=== PATIENT | female | born 1940 | race Caucasian/White ===

== ENCOUNTER 2017-04-19 07:12 | Emergency (ER) | payer MEDICARE, OTHER ==
[~2017-04-19] VITALS: Ht 162.6 cm; Wt 84.1 kg
[~2017-04-19 07:12] MED LIST: ALAVERT10 M1 PO; BENADRYL25 M2 PO; BONIVA2.5 MG PO; DOXYCYCLINE 10100 MG PO; HYZAAR 50-12.1 UDTAB PO; MIACALCIN NASA3.7 ML NS; MULTI VITAMINS1 TAB PO; NORCO 325 MG-7.1 TAB PO; OYSTER SHELL C500 MG PO; PEPCID 20MG TAB20 MG PO; PREDNISONE20 MG PO; TRIAMTERENE AND1 TAB PO; VITAMIND3 5000; ZYRTEC 10MG10 MG PO
[2017-04-19 07:13] VITALS: TEMP 97
[2017-04-19 07:38] LABS: BASO % 0.3 % (0.0-2.0); EOS # 0.1 (0.0-0.7); EOS % 0.7 % (0-4.0); GRAN # 6.8 (1.4-6.5); GRAN % 73.7 % (42.2-75.2); HEMATOCRIT 46.5 % (37.0-47.0); HEMOGLOBIN 16.3 g/dl (12.5-16.0); LYMPH # 1.4 (1.2-3.4); LYMPH % 14.9 % (20.0-51.0); MEAN CELL VOLUME 89 fl (80.0-100.0); MEAN CORPUSCULAR HEMOGLOBIN 31 pg (27.0-31.0); MEAN CORPUSCULAR HGB CONC 35 g/dl (33.0-37.0); MEAN PLATELET VOLUME 9.1 fl (7.4-10.4); MONO # 0.9 (0.1-0.6); MONO % 10.1 % (1.7-9.3); PLATELET COUNT 294 K/mm3 (130-400); RED BLOOD COUNT 5.21 M/mm3 (4.10-5.30); REDCELL DISTRIBUTION WIDTH-CV 12.7 % (11.5-14.5); WHITE BLOOD COUNT 9.2 K/mm3 (4.8-10.8)
[2017-04-19 07:59] LABS: ADJUSTED CALCIUM 9.4 mg/dL (8.4-10.2); ALANINE AMINOTRANSFERASE 28 U/L (9-52); ALBUMIN 4.1 gm/dL (3.5-5.0); ALKALINE PHOSPHATASE 101 U/L (50-136); ANION GAP 13 mmol/L (7-16); BLOOD UREA NITROGEN 12 mg/dL (7-17); CALCIUM 9.5 mg/dL (8.4-10.2); CARBON DIOXIDE 24 mmol/L (22-30); CHLORIDE 101 mmol/L (98-107); CREATININE, serum 0.68 mg/dL (0.52-1.25); GLUCOSE 106 mg/dL (74-106); POTASSIUM 3.6 mmol/L (3.4-5.0); SODIUM 138 mmol/L (137-145); TOTAL PROTEIN 7.5 gm/dL (6.4-8.2)
[2017-04-19 08:00] LABS: C-REACTIVE PROTEIN < 0.5 mg/dL (0.0-0.9)
[2017-04-19] MEDS ORDERED: ASPIRIN 32325 MG/TAB PO (08:08)
[2017-04-19] MEDS ORDERED: AMOXICILLIN 50500 MG PO (08:08)
[2017-04-19 09:04] LABS: PH 7 (5-8); URINE APPEARANCE Hazy; URINE BACTERIA None Seen /hpf; URINE BILIRUBIN Negative (NEGATIVE); URINE BLOOD Negative (NEGATIVE); URINE COLOR Yellow; URINE GLUCOSE Negative (NEGATIVE); URINE KETONE Trace (NEGATIVE); URINE UROBILINOGEN Negative (NEGATIVE)
[2017-04-19] MEDS ORDERED: ZOFRAN ODT4 MG PO (14:01)
[2017-04-19 14:08] VITALS: BP 185/78; PULSE 87
== END 2017-04-19 15:05 ==
LOC: COL.ER 07:12
PROVIDERS: Nurse Practitioner
DX: R53.1 Weakness (principal); R11.0 Nausea; I10 Essential (primary) hypertension; Z98.890 Other specified postprocedural states; Z87.39 Personal history of other diseases of the musculoskeletal system and connective tissue; W18.39XA Other fall on same level, initial encounter
CPT/HCPCS: J2405; J2550; J2765; J3010; J7030

== ENCOUNTER 2017-04-23 10:01 | Emergency (ER) | payer MEDICARE, OTHER ==
[~2017-04-23] VITALS: Ht 172.7 cm; Wt 90.9 kg
[~2017-04-23 10:01] MED LIST changes: +AMOXICILLIN 50500 MG PO; +ASPIRIN 32325 MG/TAB PO; +ZOFRAN ODT4 MG PO
[2017-04-23] MEDS ORDERED: MIRALAX PA17 GM/Dose PO (10:24)
[2017-04-23] MEDS ORDERED: PAXIL 20MG20 MG PO (10:45)
[2017-04-23] MEDS ORDERED: MOBIC15 MG PO (10:47)
[2017-04-23 10:57] LABS: PH 6 (5-8); URINE APPEARANCE Hazy; URINE BACTERIA None Seen /hpf; URINE BILIRUBIN Negative (NEGATIVE); URINE BLOOD 1+ (NEGATIVE); URINE COLOR Yellow; URINE GLUCOSE Negative (NEGATIVE); URINE KETONE Negative (NEGATIVE); URINE UROBILINOGEN Negative (NEGATIVE); URINE WBC 0-2 /hpf
[2017-04-23 11:36] VITALS: BP 161/92; PULSE 89; TEMP 97.6
== END 2017-04-23 11:15 | disposition short-term general hospital (02) ==
LOC: COL.ER 10:01
PROVIDERS: Emergency Medicine
DX: S22.089A Unspecified fracture of T11-T12 vertebra, initial encounter for closed fracture (principal); R29.818 Other symptoms and signs involving the nervous system; R33.9 Retention of urine, unspecified; I10 Essential (primary) hypertension; K21.9 Gastro-esophageal reflux disease without esophagitis; M19.90 Unspecified osteoarthritis, unspecified site; M81.0 Age-related osteoporosis without current pathological fracture; Z79.82 Long term (current) use of aspirin; Z98.890 Other specified postprocedural states; W19.XXXA Unspecified fall, initial encounter
CPT/HCPCS: A4315; J2270; J2405; J7030

== ENCOUNTER → 2017-10-24 | Outpatient (CLI) | payer MEDICARE, OTHER ==
[~2017-10-24] MED LIST changes: +MIRALAX PA17 GM/Dose PO; +MOBIC15 MG PO; +PAXIL 20MG20 MG PO
== END ==
LOC: MC.RAD 10:51
DX: Z12.31 Encounter for screening mammogram for malignant neoplasm of breast (principal)

== ENCOUNTER → 2018-10-28 | Outpatient (CLI) | payer MEDICARE, OTHER | LOC: MC.RAD 08:17 | DX: Z12.31 Encounter for screening mammogram for malignant neoplasm of breast (principal) ==

== ENCOUNTER 2022-02-10 12:59 | Emergency (ER) | payer MEDICARE, OTHER ==
[~2022-02-10] VITALS: Ht 162.6 cm; Wt 90.9 kg
[2022-02-10 13:10] VITALS: TEMP 96.4
[2022-02-10] MEDS ORDERED: ZOFRAN ODT8 MG PO (14:43)
[2022-02-10] MEDS ORDERED: NORCO 325 MG-51 TAB PO ×2 (14:43→14:44)
[2022-02-10 15:03] VITALS: BP 123/112; PULSE 78
== END 2022-02-10 15:03 | disposition home or self-care (01) ==
LOC: COL.ER 12:59
DX: R05.9 Cough, unspecified (principal)
CPT/HCPCS: J2405; J3010

== ENCOUNTER 2024-01-02 05:51 | Emergency (ER) | payer MEDICARE, OTHER ==
[~2024-01-02] VITALS: Ht 162.6 cm; Wt 88.6 kg
[~2024-01-02 05:51] MED LIST changes: +NORCO 325 MG-51 TAB PO; +ZOFRAN ODT8 MG PO
[2024-01-02 05:52] VITALS: TEMP 97.6
[2024-01-02] MEDS ORDERED: oxyCODONE 5 MG TAB PO ONE ×3 (06:15→08:45)
[2024-01-02] MEDS ORDERED: ZOFRAN ODT4 MG PO (07:20)
[2024-01-02] MEDS ORDERED: ROXICODONE 55 MG/TAB PO (07:20)
[2024-01-02 07:50] VITALS: BP 163/95; PULSE 86
[2024-01-03] MEDS ORDERED: ROXICODONE 55 MG/TAB PO (11:08)
[2024-01-03] MEDS ORDERED: ZOFRAN ODT4 MG PO (11:08)
[2024-01-04] MEDS ORDERED: RELAFEN 50500 MG/TAB PO (06:11)
[2024-01-04] MEDS ORDERED: PAXIL 10MG10 MG PO (08:03)
[2024-01-04] MEDS ORDERED: TRIAMCINOLONE A15 G3 TP (08:04)
[2024-01-04] MEDS ORDERED: FLONASE NASAL S16 GM NS (08:04)
[2024-01-05] MEDS ORDERED: VITAMIN D 50,1.25 MG PO (10:10)
[2024-01-05] MEDS ORDERED: TYLENOL PM EXTR1 TA1 PO (10:11)
[2024-01-05] MEDS ORDERED: TYLENOL 325MG325 MG PO (10:12)
== END 2024-01-02 08:18 | disposition home or self-care (01) ==
LOC: COL.ER 05:51
DX: S22.31XA Fracture of one rib, right side, initial encounter for closed fracture (principal); Z91.040 Latex allergy status; W01.198A Fall on same level from slipping, tripping and stumbling with subsequent striking against other object, initial encounter; Y93.01 Activity, walking, marching and hiking; Y92.091 Bathroom in other non-institutional residence as the place of occurrence of the external cause

== ENCOUNTER 2024-07-26 08:45 | Outpatient (RCR) | payer MEDICARE, OTHER ==
[~2024-07-26 08:45] MED LIST changes: +FLONASE NASAL S16 GM NS; +PAXIL 10MG10 MG PO; +PROTONIX 40MG T40 MG PO; +RELAFEN 50500 MG/TAB PO; +ROXICODONE 55 MG/TAB PO; +SALONPAS1 EACH TP; +TRIAMCINOLONE A15 G3 TP; +TYLENOL 325MG325 MG PO; +TYLENOL 500MG500 MG PO; +TYLENOL PM EXTR1 TA1 PO; +VITAMIN D 50,1.25 MG PO
== END 2024-07-28 | disposition home or self-care (01) ==
LOC: WSST
DX: R13.12 Dysphagia, oropharyngeal phase (principal)

== ENCOUNTER 2024-08-09 14:30 | Outpatient (RCR) | payer MEDICARE, OTHER | END 2024-08-27 | disposition home or self-care (01) | LOC: WSST | DX: R13.12 Dysphagia, oropharyngeal phase (principal) ==